=== PATIENT | female | born 1985 | race Caucasian/White ===

== ENCOUNTER 2022-02-19 12:08 | Outpatient (CLI) | payer OTHER ==
--- NOTE | 2022-02-19 14:58 | XRAY Report ---
PROCEDURE: Foot 2 View LT INDICATIONS: SPRAIN OF L FOOT TECHNIQUE: 2 views of the foot were acquired. COMPARISON: None. FINDINGS: Bones: No fractures or dislocations. No suspicious bony lesions. Soft tissues: No significant tibiotalar joint effusion. Achilles tendon appears normal. IMPRESSION: No acute osseous abnormality. Reviewed by: Kenji Clemons MD on 02/19/2022 2:57 PM PDT Approved by: Kenji Clemons MD on 02/19/2022 2:57 PM PDT Station ID: [id number]
== END 2022-02-19 23:59 | disposition home or self-care (01) ==
LOC: DI.N 12:08
PROVIDERS: ATTEND Nurse Practitioner
DX: S93.692A Other sprain of left foot, initial encounter (principal)

== ENCOUNTER 2023-06-10 15:22 | Outpatient (CLI) | payer OTHER ==
--- NOTE | 2023-06-10 16:05 | SLEEP CARE CONSULTATION ---
Information from patient questionnaire entered by Calin Reynaga. I have reviewed and concur with the information entered by Calin Reynaga. This document represents the service I personally performed and the decisions made by me, Faith Watt MD, [facility]. History of Present Illness Service Date and Time: 06/10/2023 1522 Reason for Visit: New patient Chief Complaint: reports: Snoring, Other (THERESA GAIN) Date of Onset: 8+ Usual bedtime: 1030PM Time it takes to fall asleep: 30-90 Snores at night: Yes Observed to quit breathing while asleep: No Sleeps alone due to snoring: No Number of times waking at night: 1-2 Reasons for waking at night: reports: Bathroom, Other (UNKNOWN) Toss, Turn, or Twitch while sleeping: Yes Recalls having dreams: Yes Usually gets out of bed at: 545-730AM Feels refreshed in the morning: No Morning headache: Yes Sleepy or fatigued during the day: No Ever fallen asleep while driving: No Takes day naps: No Dreams during day naps: No Prior sleep studies: No Additional HPI information: I had the pleasure of seeing Ms. Diaz today regarding the possibility of her having a sleep disorder. As you know, she is a 36-year-old lady who complains of snoring and weight gain. The patient tells me that she normally goes to bed around 10:30 pm, and it takes her approximately 30 - 90 minutes to fall asleep. She drinks alcohol at night to help her fall asleep. She has been told that she snores loudly and irregularly at night. She has never been observed to stop breathing in her sleep. Her can still sleep in the same bed. She can recall waking up on the average of 1 - 2 times during the night. Most of the time she wakes up because of having to use the bathroom. She has never awakened because of her own snoring, choking, and having to gasp for air. There is a lot of tossing and turning in her sleep. She has somniloquy (sleep talking) but not somnambulism (sleep walking). Generally, she can recall having dreams. In the morning she usually gets up out of the bed around 5:45 a.m. (7:30 a.m. on weekends) not feeling refreshed nor rested. She usually has a morning headache. During the day she does not feel sleepy or fatigued. Her score on [place] Sleepiness Scale is 2 out of 24. She never has fallen asleep while driving nor has had any accident due to sleepiness. She usually does not take naps during the day. She denies having impaired concentration during the day. 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 Patient is and lives in [place]. Have you smoked in the past 12 months: No Alcohol use: Yes Alcohol amount and frequency: 1-2 2-4 X A WEEK Caffeine use: Yes Caffeine amount and frequency: 2 CUPS DAILY Family History Family history of sleep disordered breathing: Yes Family Hx Sleep Apnea: Mother: Snoring, Sleep apnea - Treated, Father: Snoring, Sleep apnea - Untreated Allergies and Home Medications Known drug allergies: No Drug allergies reviewed: Yes Home medication list reviewed: Yes Review of Systems Weight gain over past 5 years: 40 Cardiovascular: denies: high blood pressure, palpitations, chest pain, irregular heart rate or pulse, leg or foot swelling, have to sleep sitting up, other Respiratory: denies: shortness of breath, wheeze, sputum production, chronic cough, other Gastrointestinal: denies: heartburn, difficulty swallowing, nausea, vomitting, diarrhea, abdominal pain, other Urinary: denies: incontinence, frequency, urgency, impotence, other Neurological: denies: headaches, seizure, head trauma, disorientation, speech dysfunction, gait or balance problems, fainting or unconsciousness, other Psychiatric: reports: anxiety, depression Ear/Nose/Throat: reports: tonsillectomy, wisdom teeth removed Endocrine: denies: thyroid disease, history of goiter, sluggishness, too hot or cold, excessive thirst, increased appetite, increased urination, unexplained weakness, other Musculoskeletal: reports: neck pain Immunologic: denies: sneezing, rash, itching, allergies to food or environment, other Physical Exam Vital signs obtained and entered by: CALIN Velez MA Blood Pressure: 108/64 (06/10/23) Cuff size: regular Heart Rate: 83 O2 Saturation: 98 Height: 5 ft 5.75 in Weight: 180 lb 12.8 oz Body Mass Index: 29.4 BMI Classification: Overweight Neck circumference: 13.75 Mood/affect: Normal HEENT: No craniofacial malformation Nostrils: patent to airflow Septum: deviated left Mouth and throat: narrow oropharynx Soft palate: long Hard palate: normal Uvula: normal Uvula visualization: 50% Mallampati Class II Tongue: normal in size Tonsils: absent bilaterally Chin and jaw: normal size and position Neck: normal w/o lymphadenopathy or thyromegaly Heart: regular rate and rhythm Lungs: clear bilaterally Extremities: no edema or clubbing Neurologic: intact Impression and Plan IMPRESSION: 1. Obstructive Sleep Apnea-Hypopnea Syndrome, as suggested by hi story of loud and irregular snoring, unrefreshed sleep, and morning headache. Narrow oropharynx and obesity are common predisposing factors for obstructive sleep apnea-hypopnea syndrome. I recommend proceeding to polysomnography to confirm the diagnosis and to assess severity. I informed the patient of what the sleep studies involve and after some discussion, she agreed to proceed. Plan: 1. Schedule polysomnography return in 1 to 2 weeks after the study to discuss result and initiate therapy. 2. Try to lose weight. 3. Avoid alcohol, sedatives, and muscle relaxants around bedtime. 4. Maintain a regular wakeup timeno later than 6 am on weekends. Counseling Topics: Weight control Follow up with Sleep Care in: 1-2 months Visit Type: In Office Time Spent with Patient (minutes): 15 Provider Statement: I spent 100% of the Face to Face Visit with the patient with greater than 50% spent counseling the patient and coordination of care.
[2023-06-10 16:07] VITALS: BP 108/64; O2SAT 98
== END 2023-06-10 15:23 | disposition home or self-care (01) ==
LOC: SC 15:22
PROVIDERS: ATTEND Internal Medicine Pulmonary Disease
DX: F51.04 Psychophysiologic insomnia (principal); R51.9 Headache, unspecified; R06.83 Snoring; G47.8 Other sleep disorders; F32.A Depression, unspecified; E66.3 Overweight; Z68.29 Body mass index [BMI] 29.0-29.9, adult
CPT/HCPCS: 99202; 99212

== ENCOUNTER 2023-07-22 12:47 | Outpatient (CLI) | payer OTHER ==
--- NOTE | 2023-07-22 14:20 | SLEEP CARE CONSULTATION ---
Information from patient questionnaire entered by Calin Reynaga. I have reviewed and concur with the information entered by Calin Reynaga. This document represents the service I personally performed and the decisions made by me, Faith Watt MD, [facility]. History of Present Illness Service Date and Time: 07/22/2023 1247 Initial [place] Sleepiness Scale score: 2 (06/10/23) Current [place] Sleepiness Scale score: 2 (07/22/23) Additional HPI information: : Ms. Diaz returned for follow up of the home sleep apnea test (HSAT) she had on 07/15/2023. The test was normal. There was no significant sleep-disordered breathing except during the brief supine sleep. Oxygen saturation was normal all night. The test quality was good. The patient was informed of these findings. I explained to her that the HSAT was normal. The patient said she has lost weight and normally does not sleep on her back. Sleep Study - Results Type of Sleep Study: Home sleep study (COMPLETED 07/15/23) Prior sleep studies: No Allergies and Home Medications Drug allergies reviewed: Yes Home medication list reviewed: Yes Review of Systems Review of systems same as previous: Yes Physical Exam Vital signs obtained and entered by: CALIN Velez MA Blood Pressure: 112/64 (LEFT ARM) Cuff size: regular Heart Rate: 70 O2 Saturation: 100 Height: 5 ft 5.75 in Weight: 174 lb Body Mass Index: 28.3 BMI Classification: Overweight Impression and Plan IMPRESSION: 1. Weight gain, not explained by sleep-related breathing disorder. The patient was advised to not sleep on her back and to lose more weight. PLAN: 1. Return to the clinic on as needed basis. Visit Type: In Office Time Spent with Patient (minutes): 15 Provider Statement: I spent 100% of the Face to Face Visit with the patient with greater than 50% spent counseling the patient and coordination of care.
[2023-07-22 14:21] VITALS: BP 112/64; O2SAT 100
== END 2023-07-22 12:48 | disposition home or self-care (01) ==
LOC: SC 12:47
PROVIDERS: ATTEND Internal Medicine Pulmonary Disease
DX: R63.5 Abnormal weight gain (principal)
CPT/HCPCS: 99212